=== PATIENT | male | born 1965 | race Hispanic/Latino ===

== ENCOUNTER 2016-07-31 09:12 | Emergency (ER) | payer OTHER ==
[~2016-07-31] VITALS: Ht 167.6 cm; Wt 79.5 kg
[2016-07-31 09:16] VITALS: BP 166/86; PULSE 61; RESP 16; O2SAT 99
--- NOTE | 2016-07-31 09:28 | ED.REPORT ---
HPI-Chest Pain 40 and Over Date of Service July 31, 2016 ED Provider: Leo Maldonado DO Pt is a 51 year old male with a hx of HTN presenting to the ED complaining of a mild headache in the back of his head that feels like he's under stress. Associated symptoms include dyspnea on exertion, lightheadedness, pain in his left arm into his jaw and nausea. He reports that 1 week ago, he was sitting in his car and had an episode of dizziness lasting for 10 seconds after leaning down and looking up abruptly. Pt injured chest wall in March after slipping and falling and grabbing for support. It hurt more with movement, and intermittent pain continues with movements of his left arm. Also reports tenderness in his left clavicular head, reported and confirmed with palpation on exam. His job requires frequent bending and twisting of his neck. Pt has had diet controlled HTN for years. Nursing Notes Stated Complaint: CHEST PAIN Chief Complaint: Chest Pain Nursing Notes Reviewed: Yes Allergies: Coded Allergies: No Known Allergies (Unverified , 07/31/16) Scheduled Lisinopril (Lisinopril) 20 Mg Tablet 20 MG PO DAILY General Time Seen by MD: 09:26 Chief Complaint Other (Headache) Hx Obtained From: Patient Arrived By: Walk-in Sudden in Onset?: No Onset Occurred: Onset unknown Symptom Duration: Intermittent Location: : Chest left: Jaw: Neck Quality: Painful Severity: Current: Mild Severity: Maximum: Moderate Recent Healthcare: No recent doctor visit, No recent hospitalization Similar Sx Previous: Yes Past Medical History Past Medical History HTN, diet controlled Past Surgical History denies Smoking History Never Smoker Social History Alcohol Use: 1-3 per week Drug Use: Denies drug use Ambulatory Status Independent Review of Systems Respiratory: Reports: Dyspnea on exertion Cardiovascular: Reports: Chest pain GI: Reports: Nausea Musculoskeletal: Reports: Extremity pain (left arm) Neurologic: Reports: Dizziness, Headache, Lightheaded Complete sys rev & neg: except as marked. Physical Exam Initial Vital Signs Vital Signs (First) Date Time Temp Pulse Resp B/P Pulse Ox O2 Delivery O2 Flow Rate FiO2 07/31/16 09:16 36.4 61 16 166/86 99 07/31/16 10:27 Room Air Initial VS: Reviewed Head / Eyes: Atraumatic, Normocephalic, PERRL ENT: Mucous membranes moist, Conjunctiva normal, No scleral icterus Neck: Supple, Non-tender, Full range of motion Extremities: Vascular intact, Neuro intact, No swelling, No tenderness Skin: Warm, Dry, No cyanosis Neurologic: Alert, Oriented, Nonfocal Psychiatric: Mood/affect normal, Behavior normal, Normal thought content General/Constitutional: Awake, Alert, No acute distress, Well appearing Respiratory / Chest: Breath sounds NL, Breath sounds = bilat, No respiratory distress, No rales, No rhonchi, No wheezing, No stridor, No chest tenderness Cardiovascular: Heart rate NL, Regular rhythm, Heart sounds NL, No murmurs Hypertensive Abdomen: Atraumatic, Soft, Non-tender, No guarding, No rebound Interpretation & Diagnostics Lab Results Interpretation Result Diagram: 07/31/16 0925 07/31/16 0925 Test 07/31/16 09:25 White Blood Count 5.8th/mm3 (3.8-10.1) Red Blood Count 5.45mil/mm3 (4.40-5.80) Hemoglobin 15.3g/dL (13.8-17.2) Hematocrit 46.1% (41.0-50.0) Mean Corpuscular Volume 84.6fL (81-100) Mean Corpuscular Hemoglobin 28.1pg (27.0-35.0) Mean Corpuscular Hemoglobin Concent 33.2% (32.0-37.0) Red Cell Distribution Width 13.5% (12.3-15.4) Platelet Count 236bil/L (150-400) Neutrophils (%) (Auto) 55.6% (40-74) Lymphocytes (%) (Auto) 33.9% (14-46) Monocytes (%) (Auto) 8.9% (4-12) Eosinophils (%) (Auto) 0.9% (0-5) Basophils (%) (Auto) 0.5% (0-3) Sodium Level 136mEq/L (134-144) Potassium Level 3.7mEq/L (3.5-5.2) Chloride Level 98mEq/L (97-108) Carbon Dioxide Level 24mmol/L (18-29) Blood Urea Nitrogen 14mg/dL (6-24) Creatinine 0.71mg/dL (0.76-1.27) Estimat Glomerular Filtration Rate 125mL/min (>59) Glucose Level 108mg/dL (60-99) Calcium Level 9.6mg/dL (8.5-10.1) Magnesium Level 1.9mg/dL (1.6-2.6) Total Bilirubin 0.3mg/dL (0.0-1.2) Aspartate Amino Transf (AST/SGOT) 31U/L (0-50) Alanine Aminotransferase (ALT/SGPT) 33U/L (0-44) Alkaline Phosphatase 90U/L (25-150) Troponin T 0.010ug/L (0.0-0.011) Total Protein 7.8g/dL (6.4-8.4) Albumin 4.4g/dL (3.4-5.0) Hold Dozier Top Tube Received (Received) ECG Interpretation ECG Interpretation: EKG here is normal. Does have rsr' in 2, 3 and AVF. Reviewed EKG from clinic, does not have ST elevation in V1 or V2 and does not have RBBB but does have rsr'. Time: 09:24 Interpreted by: ED physician Normal ECG Interpretation: Normal ECG w/ rate of... (63), Normal sinus rhythm X-Ray Chest Interpretation Chest Xray Interpretation: IMPRESSION: Stable chest. No acute cardiopulmonary process is suspected. Dictated by: George Vivas M.D. on 07/31/2016 at 8:49 View: AP & lat Interpretation / Wet Read by: Interpret - Radiologist Re-Eval/Medical Decision Med Decision/Clinical Course No acute coronary syndrome either life-threatening pathology the chest pain the patient has been describing is very much muscular and associated with movement and twisting his left arm. He had transient 10 second episode of dizziness associated with rapid head movement a week ago and has not returned. I do not think this sounds very life-threatening. He does have underlying hypertension it has been untreated and will be started on lisinopril and aspirin as these are good general prophylactic measures. Strict return and follow-up precautions are given. Time of Eval: 10:00 Patient Status: Condition improved Re-Evaluation/Progress Note: Discussed supplemental past medical history and performed physical exam. Time of Eval: 10:37 Patient Status: Condition improved Re-Evaluation/Progress Note: Pt blood pressure improved. Discussed plan for discharge. Pt understands and agrees. Counseled Regarding: Diagnosis, Lab results, Need for follow-up, When/why to return to ED Discharge & Departure Primary Impression: Neck pain Disposition: Home Discharge Condition All VS Reviewed: Yes Condition: Improved Additional Instructions: No dangerous cause for your chest pain was identified today. You may have arthritis in your neck which is causing the pain. I would like you to start taking blood pressure medication to lower your blood pressure. Take 1 baby Aspirin every day. Exercise for 30 minutes 3 times a week. Return to the ER if you develop a severe headache, numbness or weakness, vision changes, chest heaviness, or any other worsening symptoms. Follow up with your primary care doctor in the next week. Referrals: [facility] Attestation Portions of this note were transcribed by Shani Garcia. I, Dr. Maldonado personally performed the history, physical exam and medical decision-making; I reviewed and confirmed the accuracy of the information in the transcribed note. Signed by: Richard Retana, 07/31/2016 at 1051. copies to: [facility] Leo Maldonado DO July 31, 2016 09:28 SHANI GARCIA July 31, 2016 09:32
[2016-07-31 09:34] LABS: BASOPHILS % (AUTO) 0.5 % (0-3); EOSINOPHILS % (AUTO) 0.9 % (0-5); MONOCYTES % (AUTO) 8.9 % (4-12); Mean Corpuscular Hemoglobin 28.1 pg (27.0-35.0); Mean Corpuscular Volume 84.6 fL (81-100); NEUTROPHILS % (AUTO) 55.6 % (40-74); Platelet Count 236 bil/L (150-400)
--- NOTE | 2016-07-31 09:51 | DRSVH ---
PROCEDURE: X-RAY CHEST, TWO VIEWS ([id number]) INDICATIONS: SHORT OF BREATH TECHNIQUE: 2 views of the chest were acquired. COMPARISON: [facility], , CHEST 2VW, 02/16/2013, 13:18. FINDINGS: Surgical changes and devices: None. Lungs and pleura: No pleural effusions or pneumothorax. Lungs are clear. Mediastinum: Mediastinal contours are normal. Heart size is normal. Bones and chest wall: No suspicious bony abnormalities. Soft tissues appear unremarkable. IMPRESSION: Stable chest. No acute cardiopulmonary process is suspected. Dictated by: George Vivas M.D. on 07/31/2016 at 8:49 Approved by: George Vivas M.D. on 07/31/2016 at 8:50
[2016-07-31 10:00] LABS: TROPONIN T 0.01 ug/L (0.0-0.011)
[2016-07-31 10:11] LABS: Magnesium 1.9 mg/dL (1.6-2.6)
[2016-07-31 10:27] VITALS: BP 140/82; PULSE 62; RESP 16; O2SAT 99
[2016-07-31] MEDS ORDERED: LISI-567 PO (10:45)
[2016-07-31 10:58] VITALS: BP 148/77; PULSE 60; RESP 16; O2SAT 98
== END 2016-07-31 10:59 | disposition home or self-care (01) ==
LOC: SED 09:12
DX: M54.2 Cervicalgia (principal); I10 Essential (primary) hypertension